=== PATIENT | male | born 2005 | race Caucasian/White ===

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

== ENCOUNTER 2023-09-14 10:17 | Outpatient (OUT) | payer OTHER, SELFPAY ==
[2023-09-14 11:01] LABS: Basophils Percent Auto 0.3 % (0.2-2.0); Eosinophils Absolute Auto 0.2 10^3/uL (0.0-0.7); Eosinophils Percent Auto 2.9 % (0.9-7.0); Hematocrit 42.7 % (42.0-54.0); Hemoglobin 14.7 g/dL (14.0-18.0); Immature Granulocytes Abs Auto 0.02 10^3/uL (0.00-0.03); Immature Granulocytes Pct Auto 0.3 % (0.0-0.5); Lymphocytes Absolute Auto 1.4 10^3/uL (1.2-3.8); Lymphocytes Percent Auto 20.8 % (20.5-60.0); Mean Corpuscular HGB Conc 34.4 g/dL (29.9-35.2); Mean Corpuscular Hemoglobin 30.5 pg (25.9-34.0); Mean Corpuscular Volume 88.6 fL (80.0-94.0); Mean Platelet Volume 10.2 fL (9.5-13.5); Monocytes Absolute Auto 0.8 10^3/uL (0.3-0.8); Monocytes Percent Auto 12.1 % (1.7-12.0); Neutrophils Absolute Auto 4.2 10^3/uL (1.4-6.5); Neutrophils Percent Auto 63.6 % (43.0-75.0); Platelet Count 215 10^3/uL (150-450); Red Blood Count 4.82 10^6/uL (4.70-6.10); Red Cell Distribution Width 12.4 % (11.0-15.0); White Blood Count 6.6 10^3/uL (4.0-11.0)
[2023-09-14 11:46] LABS: Estimated Average Glucose 100 mg/dL; Glycohemoglobin A1C 5.1 % (4.5-6.2)
[2023-09-14 15:26] LABS: Carbon Dioxide 28.9 mmol/L (21.0-32.0); Chloride 104 mmol/L (98-107); Potassium 3.9 mmol/L (3.5-5.1); Sodium 140 mmol/L (136-145)
[2023-09-14 15:27] LABS: BUN Creatinine Ratio 7.5; Calcium 8.5 mg/dL (8.5-10.1); Estimated GFR (African America >60 (>=60); Estimated GFR (Non-African Ame >60 (>=60); Glucose 99 mg/dL (74-106)
[2023-09-14 15:28] LABS: Alanine Aminotransferase 55 U/L (16-63); Alkaline Phosphatase 128 U/L (46-116); Aspartate Amino Transferase 19 U/L (15-37); Bilirubin Total 0.5 mg/dL (0.2-1.0)
[2023-09-14 15:29] LABS: Albumin Globulin Ratio 0.9; Albumin Level 3.3 g/dL (3.4-5.0); Chol HDL Ratio 4.2; Cholesterol 167 mg/dL (<=200); Globulin 3.7 g/dL; HDL Cholesterol 40 mg/dL (40-60); Triglycerides 63 mg/dL (<=150); VLDL CHOLESTEROL 12.6 mg/dL
[2023-09-14 15:30] LABS: Thyroid Stimulating Hormone 3.044 uIU/mL (0.358-3.740)
== END 2023-09-14 10:18 | disposition home or self-care (01) ==
LOC: LAB 10:20
PROVIDERS: PCP Nurse Practitioner; Visit Provider Nurse Practitioner
DX: Z00.00 Encounter for general adult medical examination without abnormal findings (principal)
CPT/HCPCS: 36415; 80053; 80061; 82043; 82570; 82607; 83036; 84443; 85025

== ENCOUNTER 2023-10-18 12:57 | Outpatient (OUT) | payer OTHER, SELFPAY ==
--- OUTSIDE RECORDS SUMMARY | 2023-10-18 13:02 | XMS_ITS | CCD ---
Author Organization [facility] Care Team Providers Care Price Analyst Name Role Phone House, Virgilio Admitting Unavailable House, Virgilio Attending Unavailable House, Virgilio Primary Care Unavailable AICHHOLZ, NURSE COORDINATOR AMOR Admitting Unavailable AICHHOLZ, NURSE COORDINATOR AMOR Primary Care Unavailable AICHHOLZ, NURSE COORDINATOR AMOR Consulting Unavailable AICHHOLZ, NURSE COORDINATOR AMOR Attending Unavailable AICHHOLZ, NURSE COORDINATOR AMOR Admitting Unavailable AICHHOLZ, NURSE COORDINATOR AMOR Primary Care Unavailable AICHHOLZ, NURSE COORDINATOR AMOR Consulting Unavailable AICHHOLZ, NURSE COORDINATOR AMOR Attending Unavailable AICHHOLZ, AMOR Attending Unavailable AICHHOLZ, AMOR Attending Unavailable Medications Current Medications Medication Drug Class(es) Dates Sig (Normalized) Sig (Original) metFORMIN hydrochloride 500 mg oral tablet (1 source) Biguanide Start: 09-11-2023 take 1000 mg by mouth twice daily at mealtime Metformin Active 1000 MG PO Twice daily with meals September 11, 2023 12:00am Problems Problem Classification Problem Date Documented Da te Episodic/Chronic Other nutritional; endocrine; and metabolic disorders (4 sources) Metabolic syndrome; Translations: [METABOLIC SYNDROME] Onset: 08-05-2022 Chronic Unclassified (1 source) 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 Esther Mederos INSULINon 04-30-2022 Insulin 50.3 uIU/mL Critically high 2.6-24.9 [facility] Comment on above: Performed By: #### I NSULIN #### [facility] [address] [address] [address] Esther Mederos CBC AUTO DIFFon 04-29-2022 BASO # 0.0 103/ul Normal 0.0-0.1 [facility] Comment on above: Performed By: #### C BC #### [facility] [address] [address] [address] Esther Mederos Basophils/100 WBC (Bld) 0.3 % Normal 0.2-2.0 [facility] Comment on above: Performed By: #### C BC #### [facility] [address] [place] [address] Dr. Esther Mederos EO # 0.2 103/ul Normal 0.0-0.7 [facility] Comment on above: Performed By: #### C BC #### [facility] [address] [place] [address] Dr. Esther Mederos Eosinophils/100 WBC (Bld) 3.1 % Normal 0.9-7.0 [facility] Comment on above: Performed By: #### C BC #### [facility] [address] [place] [address] Dr. Esther Mederos Erythrocyte distribution width (RBC) [Ratio] 12.7 % Normal 11.0-15.0 [facility] Comment on above: Performed By: #### C BC #### [facility] [address] [place] [address] Dr. Esther Mederos Hematocrit (Bld) [Volume fraction] 48.5 % Normal 42.0-54.0 [facility] Comment on above: Performed By: #### C BC #### [facility] [address] [place] [address] Dr. Esther Mederos Hemoglobin (Bld) [Mass/Vol] 15.6 g/dL Normal 14.0-18.0 [facility] Comment on above: Performed By: #### C BC #### [facility] [address] [place] [address] Dr. Esther Mederos IG # 0.02 10e3/ul Normal 0.00-0.03 [facility] Comment on above: Performed By: #### C BC #### [facility] [address] [place] [address] Dr. Esther Mederos IG % 0.3 % Normal 0.0-0.5 [facility] Comment on above: Performed By: #### C BC #### [facility] [address] [place] [address] Dr. Esther Mederos LYMPH # 2.0 103/ul Normal 1.2-3.8 [facility] Comment on above: Performed By: #### C BC #### [facility] [address] [place] [address] Dr. Esther Mederos Lymphocytes/100 WBC (Bld) 34.9 % Normal 20.5-60.0 [facility] Comment on above: Performed By: #### C BC #### [facility] [address] [place] [address] Dr. Esther Mederos MANUAL DIFF REQ NO Normal [facility] Comment on above: Performed By: #### C BC #### [facility] [address] [place] [address] Dr. Esther Mederos MCH (RBC) [Entitic mass] 30.1 pg Normal 25.9-34.0 [facility] Comment on above: Performed By: #### C BC #### [facility] [address] [place] [address] Dr. Esther Mederos MCHC (RBC) [Mass/Vol] 32.2 g/dL Normal 29.9-35.2 [facility] Comment on above: Performed By: #### C BC #### [facility] [address] [place] [address] Dr. Esther Mederos MCV (RBC) [Entitic vol] 93.6 fL Normal 80.0-94.0 [facility] Comment on above: Performed By: #### C BC #### [facility] [address] [place] [address] Dr. Esther Mederos MONO # 0.5 103/ul Normal 0.3-0.8 [facility] Comment on above: Performed By: #### C BC #### [facility] [address] [place] [address] Dr. Esther Mederos Monocytes/100 WBC (Bld) 8.6 % Normal 1.7-12.0 [facility] Comment on above: Performed By: #### C BC #### [facility] [address] [place] [address] Dr. Esther Mederos NEUT # 3.1 103/ul Normal 1.4-6.5 [facility] Comment on above: Performed By: #### C BC #### [facility] [address] [place] [address] Dr. Esther Mederos Neutrophils/100 WBC (Bld) 52.8 % Normal 43.0-75.0 [facility] Comment on above: Performed By: #### C BC #### [facility] [address] [place] [address] Dr. Esther Mederos Platelet mean volume (Bld) [Entitic vol] 10.6 fL Normal 9.5-13.5 [facility] Comment on above: Performed By: #### C BC #### [facility] [address] [place] [address] Dr. Esther Mederos PLT 243 103/ul Normal 150-450 [facility] Comment on above: Performed By: #### C BC #### [facility] [address] [place] [address] Dr. Esther Mederos RBC 5.18 106/ul Normal 4.70-6.10 [facility] Comment on above: Performed By: #### C BC #### [facility] [address] [place] [address] Dr. Esther Mederos WBC 5.8 103/ul Normal 4.0-11.0 [facility] Comment on above: Performed By: #### C BC #### [facility] [address] [place] [address] Dr. Esther Mederos FREE T4on 04-29-2022 Free T4 [Mass/Vol] 0.91 ng/dL Normal 0.78-1.34 [facility] Comment on above: Performed By: #### F T4 #### [facility] [address] [address] [address] Esther Mederos GLYCOHEMOGLOBIN A1Con 2022 ADA RECOMMENDATION SEE BELOW Normal [facility] Comment on above: Result Comment: ADA RECOMMENDED LIMIT 4.0 - 6.0 ADA THERAPEUTIC TARGET < 7.0 ACTION SUGGESTED > 7.0 Performed By: #### A 1C #### [facility] [address] [address] [address] Esther Mederos Glucose [Mass/Vol] 97 mg/dL Normal [facility] Comment on above: Performed By: #### A 1C #### [facility] [address] [address] [address] Esther Mederos HbA1c (Bld) [Mass fraction] 5.0 % Normal 4.5-6.2 [facility] Comment on above: Performed By: #### A 1C #### [facility] [address] [place] [address] Dr. Esther Mederos LIPID PROFILEon 04-29-2022 CHOL-HDL RATIO NORM SEE BELOW Normal [facility] Comment on above: Result Comment: 3.3 - 4.4 LOW RISK 4.4 - 7.1 AVERAGE RISK 7.1 - 11.0 MODERATE RISK >11.0 HIGH RISK Performed By: #### L IPID, CMP, TSH #### [facility] [address] [place] [address] Dr. Esther Mederos Cholesterol [Mass/Vol] 134 mg/dL Normal 109-189 [facility] Comment on above: Performed By: #### L IPID, CMP, TSH #### [facility] [address] [address] [address] Esther Mederos Cholesterol in HDL [Mass/Vol] 32 mg/dL Normal 23-55 [facility] Comment on above: Performed By: #### L IPID, CMP, TSH #### [facility] [address] [address] [address] Esther Mederos Cholesterol in LDL [Mass/Vol] 85.2 mg/dL Normal 48.0-117.0 [facility] Comment on above: Performed By: #### L IPID, CMP, TSH #### [facility] [address] [address] [address] Esther Mederos Cholesterol.total/Cho lesterol in HDL [Mass ratio] 4.2 {ratio} Normal [facility] Comment on above: Performed By: #### L IPID, CMP, TSH #### [facility] [address] [address] [address] Esther Mederos HDL NORMAL > or = 60 mg/dl - LOW CARDIOVASCULAR RISK <40 mg/dl - HIGH CARDIOVASCULAR RISK Normal [facility] Comment on above: Performed By: #### L IPID, CMP, TSH #### [facility] [address] [address] [address] Esther Mederos LDL CALC NORMAL SEE BELOW Normal [facility] Comment on above: Result Comment: <100 mg/dl OPTIMAL 100 - 129 mg/dl NEAR OR ABOVE OPTIMAL 130 - 159 mg/dl BORDERLINE HIGH 160 - 189 mg/dl HIGH >190 mg/dl VERY HIGH Performed By: #### L IPID, CMP, TSH #### [facility] [address] [address] [address] Esther Mederos Triglyceride [Mass/Vol] 84 mg/dL Normal 50-183 [facility] Comment on above: Performed By: #### L IPID, CMP, TSH #### [facility] [address] [address] [address] Esther Mederos VLDL CALC 16.8 mg/dL Normal [facility] Comment on above: Performed By: #### L IPID, CMP, TSH #### [facility] [address] [address] [address] Esther Mederos PROF 14(COMP METB)on 023 Albumin [Mass/Vol] 3.8 g/dL Normal 3.4-5.0 [facility] Comment on above: Performed By: #### L IPID, CMP, TSH #### [facility] [address] [address] [address] Esther Mederos Albumin/Globulin [Mass ratio] 1.1 {ratio} Normal [facility] Comment on above: Performed By: #### L IPID, CMP, TSH #### [facility] [address] [address] [address] Esther Mederos ALP [Catalytic activity/Vol] 137 U/L Critically high 46-116 [facility] Comment on above: Performed By: #### L IPID, CMP, TSH #### [facility] [address] [address] [address] Esther Mederos ALT [Catalytic activity/Vol] 53 U/L Normal 16-63 [facility] Comment on above: Performed By: #### L IPID, CMP, TSH #### [facility] [address] [address] [address] Esther Mederos Anion gap [Moles/Vol] 11.9 mmol/L Normal [facility] Comment on above: Performed By: #### L IPID, CMP, TSH #### [facility] [address] [address] [address] Esther Mederos AST [Catalytic activity/Vol] 23 U/L Normal 15-37 [facility] Comment on above: Performed By: #### L IPID, CMP, TSH #### [facility] [address] [address] [address] Esther Mederos Bilirubin [Mass/Vol] 0.4 mg/dL Normal 0.2-1.0 [facility] Comment on above: Performed By: #### L IPID, CMP, TSH #### [facility] [address] [address] [address] Esther Mederos Calcium [Mass/Vol] 9.2 mg/dL Normal 8.5-10.1 [facility] Comment on above: Performed By: #### L IPID, CMP, TSH #### [facility] [address] [address] [address] Esther Mederos Chloride [Moles/Vol] 105 mmol/L Normal 98-107 [facility] Comment on above: Performed By: #### L IPID, CMP, TSH #### [facility] [address] [address] [address] Esther Mederos CO2 [Moles/Vol] 29.1 mmol/L Normal 21.0-32.0 [facility] Comment on above: Performed By: #### L IPID, CMP, TSH #### [facility] [address] [address] [address] Esther Mederos Creatinine [Mass/Vol] 0.88 mg/dL Normal 0.70-1.30 [facility] Comment on above: Performed By: #### L IPID, CMP, TSH #### [facility] [address] [address] [address] Esther Mederos EGFR-AF JAPANESE >60 Normal >=60 [facility] Comment on above: Performed By: #### L IPID, CMP, TSH #### [facility] [address] [place] [address] Dr. Esther Mederos EGFR-NON AF JAPANESE >60 Normal >=60 [facility] Comment on above: Performed By: #### L IPID, CMP, TSH #### [facility] [address] [place] [address] Dr. Esther Mederos Globulin (S) [Mass/Vol] 3.4 g/dL Normal [facility] Comment on above: Performed By: #### L IPID, CMP, TSH #### [facility] [address] [place] [address] Dr. Esther Mederos Glucose [Mass/Vol] 99 mg/dL Normal 74-106 [facility] Comment on above: Performed By: #### L IPID, CMP, TSH #### [facility] [address] [place] [address] Dr. Esther Mederos Potassium [Moles/Vol] 4.0 mmol/L Normal 3.5-5.1 [facility] Comment on above: Performed By: #### L IPID, CMP, TSH #### [facility] [address] [place] [address] Dr. Esther Mederso Protein [Mass/Vol] 7.2 g/dL Normal 6.4-8.2 [facility] Comment on above: Performed By: #### L IPID, CMP, TSH #### [facility] [address] [place] [address] Dr. Esther Mederos Sodium [Moles/Vol] 142 mmol/L Normal 136-145 [facility] Comment on above: Performed By: #### L ÁNGEL YODER, TSH #### [facility] [address] [place], [place] [address] Dr. Esther Mederos Urea nitrogen [Mass/Vol] 10.0 mg/dL Normal 6.4-19.3 [facility] Comment on above: Performed By: #### L IPÁNGEL JASSO, TSH #### [facility] [address] [address] [address] Esther Mederos Urea nitrogen/Creatinine [Mass ratio] 11.4 mg/mg Normal [facility] Comment on above: Performed By: #### L ÁNGEL YODER, TSH #### [facility] [address] [address] [address] Esther Mederos TSHon 04-29-2022 TSH 3.715 uIU/mL Normal 0.516-4.130 [facility] Comment on above: Performed By: #### L ÁNGEL YODER, TSH #### [facility] [address] [place], [place] [address] Dr. Esther Mederos Vital Signs Date Time Vital Sign Value Performing Clinician Anton [email or web address] 09-11-2023 09:43-0400 Body height 175.26 cm [facility] 09-11-2023 09:43-0400 Body mass index (BMI) [Ratio] 39.9 kg/m2 [facility] 09-11-2023 09:43-0400 Body temperature 98.3 [degF] [facility] 09-11-2023 09:43-0400 Body weight 122.72 kg [facility] 09-11-2023 09:43-0400 Diastolic blood pressure 86 mm[Hg] [facility] 09-11-2023 09:43-0400 Heart rate 83 /min [facility] 09-11-2023 09:43-0400 Respiratory rate 16 /min [facility] 09-11-2023 09:43-0400 SaO2% (BldA) [Mass fraction] 98 % [facility] 09-11-2023 09:43-9700 Systolic blood pressure 131 mm[Hg] [facility] Encounters Encounter Date Encounter Type Care Provider Facility Start: 09-15-2023 End: 09-15-2023 ambulatory AMOR AICRosauraHOLZ Not Available Start: 09-11-2023 End: 09-11-2023 ambulatory [facility] Work Phone: Start: 09-11-2023 End: 09-11-2023 Patient encounter procedure [facility] Work Phone: Start: 08-25-2023 End: 08-25-2023 ambulatory AMOR AICHHOLZ Not Available Start: 08-05-2022 End: 08-06-2022 ambulatory NURSE COORDINATOR AMOR AICHHOLZ Facility:[facility] Start: 04-29-2022 End: 04-30-2022 ambulatory NURSE COORDINATOR AMOR AICHHOLZ Facility:[facility] Start: 02-14-2018 End: 02-15-2018 Patient encounter procedure [facility] Facility:[facility] Payers Date Payer Category Payer Unknown [id number] 2003 Unknown [id number] 2.16.84 [id number] 2003 Unknown [id number] 2.16.84 [id number] 2003 Unknown [id number] 2.16.84 [id number] 2003 Unknown [id number] 2.16.84 [id number] 1959 Unknown [id number] Self-pay Self Pay [id number] Social History Date Type Detail Facility Start: 09-11-2023 Tobacco smoking stat us NHIS Never smoked tobacco (finding) [facility] Start: 2005 Sex Assigned At Male [facility] Evaluation note Note Date & Type Note Facility Evaluation note No assessment information availa ble [facility] Work Phone: Summary Purpose Family History No Family History Records FoundNo Family History Records FoundNo Family History Records Found Advance Directives No Advanced Directives Records Found Advance Directive Response Recorded Date/ Time Advance Directives No January 11, 2018 9:41am Chief Complaint and Reason for Visit Chief Complaint cotton stuck in righ t ear Additional Source Comments (unrecognized sect ion and content) No Status Records FoundNo Status Records FoundNo Status Records Found INFORMATION SOURCE (unrecogn ized section and content) DATE CREATED AUTHOR 06/16/2018 [facility] DATE CREATED AUTHOR AUTHOR'S ORGANIZ ATION 08/11/2022 [facility] DATE CREATED AUTHOR AUTHOR'S ORGANIZ ATION 09/17/2023 [facility] [employer] Care Teams (unrecognized sec tion and content) Team Status: Active Member Role Status Dates NON STAFF Primary Care Provider Active Team Status: Inactive Member Role Status Dates Lili Villa APRN Attending Provider Active Start: September 11, 2023 End: September 11, 2023 NON STAFF Primary Care Provider Active Start: September 11, 2023 End: September 11, 2023 Goals (unrecognized section and content) Goals may be documented in a n alternate section FOR RECORDS PERTAINING TO PATIENTS WHO ARE OR HAVE BEEN ENROLLED IN A CHEMICAL DEPENDENCY/SUBSTANCEABUSE PROGRAM, SOME INFORMATION MAY BE OMITTED. This clinical summary was aggregated from multiple sources. Caution should be exercised in using it in the provision of clinical care. This summary normalizes information from multiple sources, and as a consequence, information in this document may materially change the coding, format and clinical context of patient data. In addition, data may be omitted in some cases. CLINICAL DECISIONS SHOULD BE BASED ON THE PRIMARY CLINICAL RECORDS. [employer] provides no warranty or guarantee of the accuracy or completeness of information in this document.
[2023-10-18 13:50] LABS: Alanine Aminotransferase 41 U/L (16-63); Albumin Globulin Ratio 1.1; Albumin Level 3.7 g/dL (3.4-5.0); Alkaline Phosphatase 125 U/L (46-116); Aspartate Amino Transferase 18 U/L (15-37); Bilirubin Direct 0.1 mg/dL (0.0-0.2); Bilirubin Total 0.5 mg/dL (0.2-1.0); Gamma Glutamyl Transpeptidase 56 U/L (15-85); Globulin 3.4 g/dL; Total Protein 7.1 g/dL (6.4-8.2)
== END 2023-10-18 12:58 | disposition home or self-care (01) ==
LOC: LAB 12:57
PROVIDERS: PCP Nurse Practitioner; Visit Provider Nurse Practitioner
DX: Z00.00 Encounter for general adult medical examination without abnormal findings (principal); R74.8 Abnormal levels of other serum enzymes
CPT/HCPCS: 36415; 80076; 82977

== ENCOUNTER 2024-05-07 11:40 | Outpatient (OUT) | payer OTHER, SELFPAY ==
--- OUTSIDE RECORDS SUMMARY | 2024-05-07 11:59 | XMS_ITS | CCD ---
Author Organization [facility] Care Team Providers Care Licensed Practical Vocational Nurse Name Role Phone Gil, Virgilio Admitting Unavailable House, Virgilio Attending Unavailable House, Virgilio Primary Care Unavailable AICHHOLZ, REAL ESTATE SPECIALIST RONIT Admitting Unavailable AICHHOLZ, REAL ESTATE SPECIALIST RONIT Primary Care Unavailable AICHHOLZ, REAL ESTATE SPECIALIST RONIT Consulting Unavailable AICHHOLZ, REAL ESTATE SPECIALIST RONIT Attending Unavailable AICHHOLZ, REAL ESTATE SPECIALIST RONIT Admitting Unavailable AICHHOLZ, REAL ESTATE SPECIALIST RONIT Primary Care Unavailable AICHHOLZ, REAL ESTATE SPECIALIST RONIT Consulting Unavailable AICHHOLZ, REAL ESTATE SPECIALIST RONIT Attending Unavailable Aichholz PODIATRY TEACHER, Ronit Unavailable Mejia Ignacio MD Primary Care Provider AICHHOLZ, RONIT Attending Unavailable AICHHOLZ, RONIT Attending Unavailable AICHHOLZ, RONIT Attending Unavailable Medications Current Medications Medication Drug Class(es) Dates Sig (Normalized) Sig (Original) metFORMIN hydrochloride 500 mg oral tablet (8 sources) Biguanide Start: 12-11-2023 End: 06-18-2024 take 2 tablets by mouth in the morning metFORMIN (Glucophage) 500 MG tablet Indications: Insulin resistance Take 2 tablets (1,000 mg) by mouth in the morning and 2 tablets (1,000 mg) in the evening. Take with meals. 360 tablet 03/20/2024 06/18/2024 Active Start: 09-11-2023 take 1000 mg by mout h twice daily at mealtime Metformin Active 1000 MG PO Twice daily with meals September 11, 2023 12:00am Problems Active Problems Problem Classification Problem Date Documented Da te Episodic/Chronic Other liver diseases (8 sources) Alkaline phosphatase raised; Translations: [Abnormal levels of other serum enzymes] Onset: 09-14-2023 09-14-2023 Episodic Other nutritional; endocrine; and metabolic disorders (4 sources) Metabolic syndrome; Translations: [METABOLIC SYNDROME] Onset: 08-05-2022 Chronic Other nutritional; endocrine; and metabolic disorders (10 sources) Insulin resistance; Translations: [Insulin resistance] Onset: 08-25-2023 12-10-2023 Chronic Other nutritional; endocrine; and metabolic disorders (8 sources) Body mass index 30+ - obesity; Translations: [Obesity, unspecified] Onset: 08-25-2023 08-25-2023 Chronic Unclassified (1 source) 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; Translations: [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] Onset: 02-14-2018 Past or Other Problems Problem Classification Problem Date Documented Da te Episodic/Chronic Diseases of mouth; excluding dental (6 sources) Aphthous ulceration of skin and/or mucous membrane; Translations: [Recurrent oral aphthae] Onset: 08-25-2023 Resolved: 05-03-2024 08-25-2023 Episodic Otitis media and related conditions (6 sources) Acute suppurative otitis media without spontaneous rupture of ear drum; Translations: [Acute suppurative otitis media without spontaneous rupture of ear drum, right ear] Onset: 09-15-2023 Resolved: 05-03-2024 09-15-2023 Episodic Results Test Name Value Interpretation Reference Range Facil ity INSULINon 08-07-2022 Insulin 73.7 uIU/mL Critically high 2.6-24.9 [facility] Comment on above: Performed By: #### I NSULIN #### [facility] [address] [address] [address] Esther Mederos INSULINon 04-30-2022 Insulin 50.3 uIU/mL Critically high 2.6-24.[address] [facility] Comment on above: Performed By: #### I NSULIN #### [facility] [address] [address] [address] Esther Mederos CBC AUTO DIFFon 04-29-2022 BASO # 0.0 103/ul Normal 0.0-0.1 [facility] Comment on above: Performed By: #### C BC #### [facility] [address] [address] [address] Esther Mederos Basophils/100 WBC (Bld) 0.3 % Normal 0.2-2.0 [facility] Comment on above: Performed By: #### C BC #### [facility] [address] [place] [address] Dr. Esther Mederos EO # 0.2 103/ul Normal 0.0-0.7 [facility] Comment on above: Performed By: #### C BC #### [facility] [address] [place] [address] Dr. Esther Mederos Eosinophils/100 WBC (Bld) 3.1 % Normal 0.9-7.0 [facility] Comment on above: Performed By: #### C BC #### [facility] [address] [place] [address] Dr. Esther Mederos Erythrocyte distribution width (RBC) [Ratio] 12.7 % Normal 11.0-15.0 [facility] Comment on above: Performed By: #### C BC #### [facility] [address] [place] [address] Dr. Esther Mederos Hematocrit (Bld) [Volume fraction] 48.5 % Normal 42.0-54.0 [facility] Comment on above: Performed By: #### C BC #### [facility] [address] [place] [address] Dr. Esther Mederos Hemoglobin (Bld) [Mass/Vol] 15.6 g/dL Normal 14.0-18.0 [facility] Comment on above: Performed By: #### C BC #### [facility] [address] [place] [address] Dr. Esther Mederos IG # 0.02 10e3/ul Normal 0.00-0.03 [facility] Comment on above: Performed By: #### C BC #### [facility] [address] [place] [address] Dr. Esther Mederos IG % 0.3 % Normal 0.0-0.5 [facility] Comment on above: Performed By: #### C BC #### [facility] [address] [place] [address] Dr. Esther Mederos LYMPH # 2.0 103/ul Normal 1.2-3.8 [facility] Comment on above: Performed By: #### C BC #### [facility] [address] [place] [address] Dr. Esther Mederos Lymphocytes/100 WBC (Bld) 34.9 % Normal 20.5-60.0 [facility] Comment on above: Performed By: #### C BC #### [facility] [address] [place] [address] Dr. Esther Mederos MANUAL DIFF REQ NO Normal [facility] Comment on above: Performed By: #### C BC #### [facility] [address] [place] [address] Dr. Esther Mederos MCH (RBC) [Entitic mass] 30.1 pg Normal 25.9-34.0 [facility] Comment on above: Performed By: #### C BC #### [facility] [address] [place] [address] Dr. Esther Mederos MCHC (RBC) [Mass/Vol] 32.2 g/dL Normal 29.9-35.2 [facility] Comment on above: Performed By: #### C BC #### [facility] [address] [place] [address] Dr. Esther Mederos MCV (RBC) [Entitic vol] 93.6 fL Normal 80.0-94.0 [facility] Comment on above: Performed By: #### C BC #### [facility] [address] [place] [address] Dr. Esther Mederos MONO # 0.5 103/ul Normal 0.3-0.8 [facility] Comment on above: Performed By: #### C BC #### [facility] [address] [place] [address] Dr. Esther Mederos Monocytes/100 WBC (Bld) 8.6 % Normal 1.7-12.0 [facility] Comment on above: Performed By: #### C BC #### [facility] [address] [place] [address] Dr. Esther Mederos NEUT # 3.1 103/ul Normal 1.4-6.5 [facility] Comment on above: Performed By: #### C BC #### [facility] [address] [place] [address] Dr. Esther Mederos Neutrophils/100 WBC (Bld) 52.8 % Normal 43.0-75.0 [facility] Comment on above: Performed By: #### C BC #### [facility] [address] [place] [address] Dr. Esther Mederos Platelet mean volume (Bld) [Entitic vol] 10.6 fL Normal 9.5-13.5 [facility] Comment on above: Performed By: #### C BC #### [facility] [address] [place] [address] Dr. Esther Mederos PLT 243 103/ul Normal 150-450 [facility] Comment on above: Performed By: #### C BC #### [facility] [address] [place] [address] Dr. Esther Mederos RBC 5.18 106/ul Normal 4.70-6.10 [facility] Comment on above: Performed By: #### C BC #### [facility] [address] [place] [address] Dr. Esther Mederos WBC 5.8 103/ul Normal 4.0-11.0 [facility] Comment on above: Performed By: #### C BC #### [facility] [address] [place] [address] Dr. Esther Mederos FREE T4on 04-29-2022 Free T4 [Mass/Vol] 0.91 ng/dL Normal 0.78-1.34 [facility] Comment on above: Performed By: #### F T4 #### [facility] [address] [place] [address] Dr. Esther Mederos GLYCOHEMOGLOBIN A1Con 2022 ADA RECOMMENDATION SEE BELOW Normal [facility] Comment on above: Result Comment: ADA RECOMMENDED LIMIT 4.0 - 6.0 ADA THERAPEUTIC TARGET < 7.0 ACTION SUGGESTED > 7.0 Performed By: #### A 1C #### [facility] [address] [place] [address] Dr. Esther Mederos Glucose [Mass/Vol] 97 mg/dL Normal [facility] Comment on above: Performed By: #### A 1C #### [facility] [address] [address] [address] Esther Mederos HbA1c (Bld) [Mass fraction] 5.0 % Normal 4.5-6.2 [facility] Comment on above: Performed By: #### A 1C #### [facility] [address] [address] [address] Esther Mederos LIPID PROFILEon 04-29-2022 CHOL-HDL RATIO NORM SEE BELOW Normal [facility] Comment on above: Result Comment: 3.3 - 4.4 LOW RISK 4.4 - 7.1 AVERAGE RISK 7.1 - 11.0 MODERATE RISK >11.0 HIGH RISK Performed By: #### L IPID, CMP, TSH #### [facility] [address] [address] [address] Esther Mederos Cholesterol [Mass/Vol] 134 mg/dL Normal 109-189 [facility] Comment on above: Performed By: #### L IPID, CMP, TSH #### [facility] [address] [address] [address] Esther Mederos Cholesterol in HDL [Mass/Vol] 32 mg/dL Normal 23-55 [facility] Comment on above: Performed By: #### L IPID, CMP, TSH #### [facility] [address] [address] [address] Esther Mederos Cholesterol in LDL [Mass/Vol] 85.2 mg/dL Normal 48.0-117.0 [facility] Comment on above: Performed By: #### L IPID, CMP, TSH #### [facility] [address] [address] [address] Esther Mederos Cholesterol.total/Cho lesterol in HDL [Mass ratio] 4.2 {ratio} Normal [facility] Comment on above: Performed By: #### L IPID, CMP, TSH #### [facility] [address] [address] [address] Esther Mederos HDL NORMAL > or = 60 mg/dl - LOW CARDIOVASCULAR RISK <40 mg/dl - HIGH CARDIOVASCULAR RISK Normal [facility] Comment on above: Performed By: #### L IPID, CMP, TSH #### [facility] [address] [address] [address] Esther Mederos LDL CALC NORMAL SEE BELOW Normal [facility] Comment on above: Result Comment: <100 mg/dl OPTIMAL 100 - 129 mg/dl NEAR OR ABOVE OPTIMAL 130 - 159 mg/dl BORDERLINE HIGH 160 - 189 mg/dl HIGH >190 mg/dl VERY HIGH Performed By: #### L IPID, CMP, TSH #### [facility] [address] [address] [address] Esther Mederos Triglyceride [Mass/Vol] 84 mg/dL Normal 50-183 [facility] Comment on above: Performed By: #### L IPID, CMP, TSH #### [facility] [address] [address] [address] Esther Mederos VLDL CALC 16.8 mg/dL Normal [facility] Comment on above: Performed By: #### L IPID, CMP, TSH #### [facility] [address] [address] [address] Esther Mederos PROF 14(COMP METB)on 023 Albumin [Mass/Vol] 3.8 g/dL Normal 3.4-5.0 [facility] Comment on above: Performed By: #### L IPID, CMP, TSH #### [facility] [address] [address] [address] Esther Mederos Albumin/Globulin [Mass ratio] 1.1 {ratio} Normal [facility] Comment on above: Performed By: #### L IPID, CMP, TSH #### [facility] [address] [address] [address] Etsher Mederos ALP [Catalytic activity/Vol] 137 U/L Critically high 46-116 [facility] Comment on above: Performed By: #### L IPID, CMP, TSH #### [facility] [address] [address] [address] Esther Mederos ALT [Catalytic activity/Vol] 53 U/L Normal 16-63 [facility] Comment on above: Performed By: #### L IPID, CMP, TSH #### [facility] [address] [address] [address] Esther Mederos Anion gap [Moles/Vol] 11.9 mmol/L Normal [facility] Comment on above: Performed By: #### L IPID, CMP, TSH #### [facility] [address] [address] [address] Esther Mederos AST [Catalytic activity/Vol] 23 U/L Normal 15-37 [facility] Comment on above: Performed By: #### L IPID, CMP, TSH #### [facility] [address] [address] [address] Esther Mederos Bilirubin [Mass/Vol] 0.4 mg/dL Normal 0.2-1.0 [facility] Comment on above: Performed By: #### L IPID, CMP, TSH #### [facility] [address] [place] [address] Dr. Esther Mederos Calcium [Mass/Vol] 9.2 mg/dL Normal 8.5-10.1 [facility] Comment on above: Performed By: #### L IPID, CMP, TSH #### [facility] [address] [place] [address] Dr. Esther Mederos Chloride [Moles/Vol] 105 mmol/L Normal 98-107 [facility] Comment on above: Performed By: #### L IPID, CMP, TSH #### [facility] [address] [address] [address] Esther Mederos CO2 [Moles/Vol] 29.1 mmol/L Normal 21.0-32.0 [facility] Comment on above: Performed By: #### L IPID, CMP, TSH #### [facility] [address] [place] [address] Dr. Esther Mederos Creatinine [Mass/Vol] 0.88 mg/dL Normal 0.70-1.30 [facility] Comment on above: Performed By: #### L IPID, CMP, TSH #### [facility] [address] [place] [address] Dr. Esther Mederos EGFR-AF VIETNAMESE >60 Normal >=[address] [facility] Comment on above: Performed By: #### L IPID, CMP, TSH #### [facility] [address] [place] [address] Dr. Esther Mederos EGFR-NON AF VIETNAMESE >60 Normal >=60 [facility] Comment on above: Performed By: #### L IPID, CMP, TSH #### [facility] [address] [place] [address] Dr. Esther Mederos Globulin (S) [Mass/Vol] 3.4 g/dL Normal [facility] Comment on above: Performed By: #### L IPID, CMP, TSH #### [facility] [address] [place] [address] Dr. Esther Mederos Glucose [Mass/Vol] 99 mg/dL Normal 74-106 [facility] Comment on above: Performed By: #### L IPID, CMP, TSH #### [facility] [address] [place] [address] Dr. Esther Mederos Potassium [Moles/Vol] 4.0 mmol/L Normal 3.5-5.1 [facility] Comment on above: Performed By: #### L IPID, CMP, TSH #### [facility] [address] [place] [address] Dr. Esther Mederos Protein [Mass/Vol] 7.2 g/dL Normal 6.4-8.2 [facility] Comment on above: Performed By: #### L IPID, CMP, TSH #### [facility] [address] [place] [address] Dr. Esther Mederos Sodium [Moles/Vol] 142 mmol/L Normal 136-145 [facility] Comment on above: Performed By: #### L IPID, CMP, TSH #### [facility] [address] [place] [address] Dr. Esther Mederos Urea nitrogen [Mass/Vol] 10.0 mg/dL Normal 6.4-19.3 [facility] Comment on above: Performed By: #### L IPID, CMP, TSH #### [facility] [address] [address] [address] Esther Mederos Urea nitrogen/Creatinine [Mass ratio] 11.4 mg/mg Normal [facility] Comment on above: Performed By: #### L IPIDÁNGEL, TSH #### [facility] [address] [address] [address] Esther Mederos TSHon 04-29-2022 TSH 3.715 uIU/mL Normal 0.516-4.130 [facility] Comment on above: Performed By: #### L IPID, CMP, TSH #### [facility] [address] [address] [address] Esther Mederos Vital Signs Date Time Vital Sign Value Performing Clinician Facility 05-03-2024 13:20-0500 Body mass index (BMI) [Ratio] 39.31 kg/m2 Ronit Olvera PODIATRY TEACHER Work Phone: [facility] 05-03-2024 13:20-0500 Body temperature 97.81 [degF] Ronit Olvera PODIATRY TEACHER Work Phone: [facility] 05-03-2024 13:20-0500 Body weight 124.29 kg Ronit Olvera PODIATRY TEACHER Work Phone: [facility] 05-03-2024 13:20-0500 Diastolic blood pressure 84 mm[Hg] Ronit Olvera PODIATRY TEACHER Work Phone: [facility] 05-03-2024 13:20-0500 Heart rate 104 /min Ronitdivine Olvera PODIATRY TEACHER Work Phone: [facility] 05-03-2024 13:20-0500 Respiratory rate 19 /min Ronit Olvera PODIATRY TEACHER Work Phone: [facility] 05-03-2024 13:20-0500 SaO2% (BldA) [Mass fraction] 97 % Ronit Olvera PODIATRY TEACHER Work Phone: [facility] 05-03-2024 13:20-0500 Systolic blood pressure 128 mm[Hg] Ronit Olvera PODIATRY TEACHER Work Phone: [facility] 09-11-2023 09:43-0400 Body height 175.26 cm [facility] 09-11-2023 09:43-0400 Body mass index (BMI) [Ratio] 39.9 kg/m2 [facility] 09-11-2023 09:43-0400 Body temperature 98.3 [degF] [facility] 09-11-2023 09:43-0400 Body weight 122.72 kg [facility] 09-11-2023 09:43-0400 Diastolic blood pressure 86 mm[Hg] [facility] 09-11-2023 09:43-0400 Heart rate 83 /min [facility] 09-11-2023 09:43-0400 Respiratory rate 16 /min [facility] 09-11-2023 09:43-0400 SaO2% (BldA) [Mass fraction] 98 % [facility] 09-11-2023 09:43-0400 Systolic blood pressure 131 mm[Hg] [facility] Encounters Encounter Date Encounter Type Care Provider Facility Start: 05-03-2024 End: 05-03-2024 Bamboo flowsheet Ronit Olvera PODIATRY TEACHER Work Phone: [facility] Start: 05-03-2024 End: 05-03-2024 Bamboo flowsheet Ronit Olvera PODIATRY TEACHER Work Phone: [facility] Start: 05-03-2024 End: 05-03-2024 Office outpatient visit 15 minutes Ronit Olvera PODIATRY TEACHER Work Phone: [facility] Comment on above: Insulin resistance ( Primary Dx); Obesity (BMI 30-39.9); Elevated alkaline phosphatase level Start: 05-03-2024 End: 05-03-2024 ambulatory RONIT WADE Not Available Start: 03-20-2024 End: 03-22-2024 Telephone encounter Ronit Olvera PODIATRY TEACHER Work Phone: [facility] Start: 03-17-2024 End: 03-20-2024 Refill Ronit Wade PODIATRY TEACHER Work Phone: [facility] Comment on above: Insulin resistance Start: 12-10-2023 End: 12-11-2023 Refill Ronit Aichholz PODIATRY TEACHER Work Phone: [facility] Comment on above: Insulin resistance Start: 09-15-2023 End: 09-15-2023 ambulatory RONIT AICHHOLZ Not Available Start: 09-11-2023 End: 09-11-2023 ambulatory [facility] Work Phone: Start: 09-11-2023 End: 09-11-2023 Patient encounter procedure [facility] Phys[facility] Work Phone: Start: 08-25-2023 Patient encounter status Ronit Aichholz PODIATRY TEACHER Work Phone: [facility] Start: 08-25-2023 End: 08-25-2023 ambulatory RONIT AICHHOLZ Not Available Start: 08-05-2022 End: 08-06-2022 ambulatory REAL ESTATE SPECIALIST RONIT AICHHOLZ Facility:[facility] Start: 04-29-2022 End: 04-30-2022 ambulatory REAL ESTATE SPECIALIST RONIT AICHHOLZ Facility:[facility] Start: 02-14-2018 End: 02-15-2018 Patient encounter procedure Virg[place] Facility:[facility] Plan of Treatment Date Care Activity Detail Author Start: 11-01-2024 End: 11-01-2024 Patient encounter procedure 11/01/2024 3:00 PM EDT Office Visit [facility] [address] [place] [id number] Ronit Olvera PODIATRY TEACHER [address] [place] [id number] [facility] Start: 06-28-2024 Influenza vaccination Influenza Vacc ine (#1) [facility] Comment on above: Postponed from 11/26 (Patient Refused) Start: 05-03-2024 End: 05-03-2025 Comprehensive metabolic 2000 panel - Serum or Plasma Comprehensive metabolic panel Lab Routine Elevated alkaline phosphatase level Expected: 05/03/2024 (Approximate), Expires: 05/03/2025 [facility] Comment on above: Expected: 05/03/2024 (Approximate), Expires: 05/03/2025 Start: 05-03-2024 End: 05-03-2025 Insulin, random Insulin, random Lab Routine Insulin resistance Expected: 05/03/2024 (Approximate), Expires: 05/03/2025 [facility] Work Phone: Comment on above: Expected: 05/03/2024 (Approximate), Expires: 05/03/2025 Start: 05-03-2024 End: 05-03-2024 Patient encounter procedure 05/03/2024 1:20 PM EST Office Visit [facility] [address] [place] [address] Ronit Olvera, PODIATRY TEACHER [address] [place] [address] Insulin resistance (Primary Dx); Obesity (BMI 30-39.9); Elevated alkaline phosphatase level [facility] Comment on above: Insulin resistance ( Primary Dx); Obesity (BMI 30-39.9); Elevated alkaline phosphatase level Start: 11-27-2023 Influenza vaccination Influenza Vacc ine (#1) [facility] Immunizations Immunization Date Immunization Notes Care Provider Fa [facility] 02-19-2023 influenza, injectabl e, quadrivalent, preservative free Ronit Wade PODIATRY TEACHER Work Phone: [facility] 02-19-2023 influenza virus vacc ine, unspecified formulation Ronit Wade PODIATRY TEACHER Work Phone: [facility] 09-03-2021 meningococcal oligosaccharide (groups A, C, Y and W-135) diphtheria toxoid conjugate vaccine (MCV4O) Ronit Olvera PODIATRY TEACHER Work Phone: [facility] 02-09-2019 Influenza, injectabl e, Madin Margaret Canine Kidney, quadrivalent with preservative Ronit Wade PODIATRY TEACHER Work Phone: [facility] 01-10-2018 influenza, injectabl e, quadrivalent, preservative free Ronit Aichholz PODIATRY TEACHER Work Phone: [facility] 03-02-2017 Influenza, injectabl e, Madin Dennison Canine Kidney, preservative free, quadrivalent Ronit Aichholz PODIATRY TEACHER Work Phone: [facility] 07-01-2016 meningococcal oligosaccharide (groups A, C, Y and W-135) diphtheria toxoid conjugate vaccine (MCV4O) Ronit Aichholz PODIATRY TEACHER Work Phone: [facility] 07-01-2016 tetanus toxoid, redu loly diphtheria toxoid, and acellular pertussis vaccine, adsorbed Ronit Aichholz PODIATRY TEACHER Work Phone: [facility] 01-25-2016 influenza, seasonal, injectable, preservative free Ronit Aichholz PODIATRY TEACHER Work Phone: [facility] 12-28-2013 influenza virus vacc ine, live, attenuated, for intranasal use Ronit Aichholz PODIATRY TEACHER Work Phone: [facility] 01-19-2013 influenza, injectabl e, quadrivalent, preservative free Ronit Aichholz PODIATRY TEACHER Work Phone: [facility] [facility]2012 influenza, seasonal, injectable, preservative free Ronit Aichholz PODIATRY TEACHER Work Phone: [facility] 01-08-2011 influenza, seasonal, injectable, preservative free Ronit Aichholz PODIATRY TEACHER Work Phone: [facility] 01-30-2010 influenza, seasonal, injectable, preservative free Ronit Aichholz PODIATRY TEACHER Work Phone: [facility] 09-03-2009 hepatitis A vaccine, pediatric/adolescent dosage, 2 dose schedule Ronit Aichholz PODIATRY TEACHER Work Phone: [facility] 05-22-2009 hepatitis A vaccine, pediatric/adolescent dosage, 2 dose schedule Ronit Aichholz PODIATRY TEACHER Work Phone: [facility] 11-11-2008 hepatitis A vaccine, pediatric/adolescent dosage, 2 dose schedule Ronitdivine Olsonz PODIATRY TEACHER Work Phone: [facility] 01-01-2008 diphtheria, tetanus toxoids and acellular pertussis vaccine Ronit Miguel Angelholz PODIATRY TEACHER Work Phone: [facility] 01-01-2008 measles, mumps and r ubella virus vaccine Ronit Aicholz PODIATRY TEACHER Work Phone: [facility] 01-01-2008 poliovirus vaccine, inactivated [facility] P[facility]IAT[facility] TEACHER Work Phone: [facility] 01-01-2008 varicella virus vaccine Ronit Aicholz PODIATRY TEACHER Work Phone: [facility] 01-30-2007 influenza virus vacc ine, whole virus Ronit Eliecerholz PODIATRY TEACHER Work Phone: [facility] 02-09-2005 diphtheria, tetanus toxoids and acellular pertussis vaccine, 5 pertussis antigens [facility] PODIATRY TEACHER Work Phone: [facility] 02-09-2005 influenza virus vacc ine, whole virus [facility] P[facility]IATRY TEACHER Work Phone: [facility] 02-09-2005 pneumococcal conjuga te vaccine, 7 valent Ronit Eliecerholz PODIATRY TEACHER Work Phone: [facility] 09-04-2004 haemophilus influenz ae type b vaccine, PRP-T conjugate Ronit Eliecerholz PODIATRY TEACHER Work Phone: [facility] 09-04-2004 measles, mumps and r ubella virus vaccine Ronit Aicholz PODIATRY TEACHER Work Phone: [facility] 09-04-2004 varicella virus vaccine Ronit Aicholz PODIATRY TEACHER Work Phone: [facility] 04-24-2004 DTaP-hepatitis B and poliovirus vaccine Ronit Aicholz PODIATRY TEACHER Work Phone: [facility] 04-24-2004 haemophilus influenz ae type b vaccine, conjugate unspecified formulation Ronit Eliecerholz PODIATRY TEACHER Work Phone: [facility] 04-24-2004 pneumococcal conjuga te vaccine, 7 valent Ronit Aichholz PODIATRY TEACHER Work Phone: [facility] 01-30-2004 DTaP-hepatitis B and poliovirus vaccine Ronit Aichholz PODIATRY TEACHER Work Phone: [facility] 01-30-2004 haemophilus influenz ae type b vaccine, conjugate unspecified formulation Ronit Aichholz PODIATRY TEACHER Work Phone: [facility] 01-30-2004 pneumococcal conjuga te vaccine, 7 valent Ronit Aichholz PODIATRY TEACHER Work Phone: [facility] 2003 DTaP-hepatitis B and poliovirus vaccine Ronit Aichholz PODIATRY TEACHER Work Phone: [facility] 2003 haemophilus influenz ae type b vaccine, conjugate unspecified formulation Ronit Aichholz PODIATRY TEACHER Work Phone: [facility] 2003 pneumococcal conjuga te vaccine, 7 valent Ronit Aichholz PODIATRY TEACHER Work Phone: [facility] 2003 hepatitis B vaccine, pediatric or pediatric/adolescent dosage Ronit Aichholz PODIATRY TEACHER Work Phone: [facility] Payers Date Payer Category Payer Private Health Insurance [facility] [id number] 2022 Unknown [employer] [id number] 2022-Present [phone] [address] [address] [place] [address] [id number] 2022 Unknown [id number] 2003 Unknown [id number] 2003 Unknown [id number] 2003 Unknown [id number] 2003 Unknown [id number] 2003 Unknown [id number] 1959 Unknown [id number] Self-pay Self Pay [id number] Social History Date Type Detail Facility Start: 03-16-2023 End: 09-11-2023 Tobacco smoking status HIIS Never smoked tobacco (finding) [facility] Start: 2003 Sex Assigned At Male F [facility] Start: 09-15-2023 End: 05-03-2024 Alcoholic beverage intake Lifetime non-drinker (finding) [facility] Start: 03-15-2023 End: 08-25-2023 [facility] Start: 03-15-2023 End: 08-25-2023 Humiliation, Afraid, Rape, and Kick questionnaire [HARK] [facility] Within the last year , have you been afraid of your partner or ex-partner? Patient declined [facility] Within the last year , have you been humiliated or emotionally abused in other ways by your partner or ex-partner? No [facility] How often to you hav e a drink containing alcohol? Never [facility] (I/We) worried wheth er (my/our) food would run out before (I/we) got money to buy more. Never true [facility] Start: 08-25-2023 Alcohol Comment no caffine [facility] Start: 2003 Sex assigned at Not on file [facility] History of Present illness Narrative 05-03-2024 Ronit Wade, PODIATRY TEACHER - 05/03/2024 1:20 PM Vinny Olvera, PODIATRY TEACHER - 05/03/2024 7:11 AM ESTRonit Olvera, PODIATRY TEACHER - 05/03/2024 7:11 AM ESTRonit Olvera, PODIATRY TEACHER - 05/03/2024 7:11 AM EST Note Date & Type Note Facility 05-03-2024 History of Presen t illness Narrative Nicholas Moreno is a 18 y.o. male presents with chief complaint of No chief complaint on file. HPI: Here for recheck of elevated insulin levels, he is taking metformin 1000mg BID No freq thirst/urination Does not exercise regularly No other c/o SUBJECTIVE: MEDICATIONS: Current Outpatient Medications Medication Instructions metFORMIN (GLUCOPHAGE) 1,000 mg, Oral, 2 times daily with meals ALLERGIES: No Known Allergies REVIEW OF SYMPTOMS: Review of Systems Constitutional: Negative for activity change, appetite change and unexpected weight change. HENT: Negative for ear pain, nosebleeds, sneezing, trouble swallowing and voice change. Eyes: Negative for pain, discharge and visual disturbance. Respiratory: Negative for apnea, chest tightness and wheezing. Cardiovascular: Negative for leg swelling. Gastrointestinal: Negative for abdominal distention, blood in stool, constipation and diarrhea. Genitourinary: Negative for decreased urine volume, difficulty urinating, dysuria and hematuria. Skin: Negative for color change. Neurological: Negative for dizziness, tremors and seizures. Psychiatric/Behavioral: Negative for agitation, decreased concentration, hallucinations, self-injury and suicidal ideas. The patient is not nervous/anxious. Hematological: Negative for adenopathy. Does not bruise/bleed easily. Endocrine: Negative for cold intolerance, heat intolerance, polydipsia and polyuria. Allergic/Immunologic: Negative for environmental allergies and food allergies. PAST MEDICAL HISTORY Past Medical History: Diagnosis Date Diabetes (CMS/HCC) Insulin resistance Left leg pain Obesity (BMI 30-39.9) History reviewed. No pertinent surgical history. family history includes Diabetes in his paternal grandfather and paternal grandmother. OBJECTIVE: Visit Vitals BP 128/84 (BP Location: Left arm, Patient Position: Sitting, BP Cuff Size: Large adult) Pulse 104 Temp 97.8 F (Temporal) Resp 19 Wt 274 lb SpO2 97% BMI 39.31 kg/m Smoking Status Never BSA 2.47 m Physical Exam Vitals and nursing note reviewed. Constitutional: Appearance: Normal appearance. HENT: Head: Normocephalic. Right Ear: External ear normal. Left Ear: External ear normal. Nose: Nose normal. Mouth/Throat: Mouth: Mucous membranes are moist. Pharynx: Oropharynx is clear. Eyes: Extraocular Movements: Extraocular movements intact. Conjunctiva/sclera: Conjunctivae normal. Cardiovascular: Rate and Rhythm: Normal rate and regular rhythm. Pulses: Normal pulses. Heart sounds: Normal heart sounds. Pulmonary: Effort: Pulmonary effort is normal. Breath sounds: Normal breath sounds. Abdominal: General: Bowel sounds are normal. Palpations: Abdomen is soft. Tenderness: There is no abdominal tenderness. There is no guarding or rebound. Hernia: No hernia is present. Musculoskeletal: Cervical back: Neck supple. Right lower leg: No edema. Left lower leg: No edema. Lymphadenopathy: Cervical: No cervical adenopathy. Skin: General: Skin is warm and dry. Capillary Refill: Capillary refill takes 2 to 3 seconds. Neurological: General: No focal deficit present. Mental Status: He is alert. Psychiatric: Mood and Affect: Mood normal. Behavior: Behavior normal. Thought Content: Thought content normal. Judgment: Judgment normal. ASSESSMENT AND PLAN: No follow-ups on file. Problem List Items Addressed This Visit Insulin resistance - Primary Current med metformin BID Check labs Relevant Orders Insulin, random Obesity (BMI 30-39.9) Discussed with patient their BMI (actual, verses recommended). We have also discussed lifestyle modifications: attempts to perform physical activity as chronic conditions allow, also to monitor dietary intake: increasing protein/fruits/veggies and lowering carb intake (unless contraindicated). Limit sodas, juices, and sugary drinks. Exercise 3-4 times weekly at least 30 minutes Goals of weight loss: goal 260 at fu in 6 months Elevated alkaline phosphatase level Check labs No acute abd pain Relevant Orders Comprehensive metabolic panel Associated Problem(s): Elevated alkaline phosphatase level Check labs No acute abd pain Associated Problem(s): Obesity (BMI 30-39.9) Discussed with patient their BMI (actual, verses recommended). We have also discussed lifestyle modifications: attempts to perform physical activity as chronic conditions allow, also to monitor dietary intake: increasing protein/fruits/veggies and lowering carb intake (unless contraindicated). Limit sodas, juices, and sugary drinks. Exercise 3-4 times weekly at least 30 minutes Goals of weight loss: goal 260 at fu in 6 months Associated Problem(s): Insulin resistance Current med metformin BID Check labs documented in this encounter [facility] Instructions 05-03-2024 Patient Instructions Note Date & Type Note Facility 05-03-2024 Instructions Ronit Olvera NP - 05/03/2024 1:20 PM EST Check labs Exercise 3-4 times weekly for 30 minutes Goals for weight loss and dietary changes discussed documented in this encounter [facility] Telephone encounter Note 03-20-2024 Telephone Encounter - Ronit Olvera NP - 03/20/2024 11:18 AM EST Note Date & Type Note Facility 03-20-2024 Telephone encount er Note Please contact pt to let him know he needs to schedule an appt with me [place] [facility] Note 03-20-2024 Telephone Encounter - Ronit Olvera NP - 03/20/2024 11:18 AM EST Note Date & Type Note Facility 03-20-2024 Miscellaneous Notes Formattin g of this note might be different from the original. Please contact pt to let him know he needs to schedule an appt with me [place] documented in this encounter [facility] Evaluation note Note Date & Type Note Facility Evaluation note No assessment information availa [facility] Work Phone: Evaluation note Note Date & Type Note Facility Evaluation note Diagnosis Insulin resistance Other abnormal glucose documented in this encounter [facility] Evaluation note Note Date & Type Note Facility Evaluation note Diagnosis Wellness examination- Primary Insulin resistance Other abnormal glucose Aphthous ulcer Oral aphthae Obesity (BMI 30-39.9) Non-recurrent acute suppurative otitis media of right ear without spontaneous rupture of tympanic membrane- Primary Obesity (BMI 30-39.9) Elevated alkaline phosphatase level Insulin resistance Other abnormal glucose documented in this encounter [facility] Evaluation note Note Date & Type Note Facility Evaluation note Diagnosis Wellness examination- Primary Insulin resistance Other abnormal glucose Aphthous ulcer Oral aphthae Obesity (BMI 30-39.9) Non-recurrent acute suppurative otitis media of right ear without spontaneous rupture of tympanic membrane- Primary Obesity (BMI 30-39.9) Elevated alkaline phosphatase level Insulin resistance- Primary Other abnormal glucose Obesity (BMI 30-39.9) Elevated alkaline phosphatase level documented in this encounter [facility] Summary Purpose Family History No Family History [...] section and content) DATE CREATED AUTHOR 06/16/2018 [facility] DATE CREATED AUTHOR AUTHOR'S ORGANIZ ATION 08/11/2022 [facility] DATE CREATED AUTHOR AUTHOR'S ORGANIZ ATION 05/05/2024 [facility] [employer] Care Teams (unrecognized sec tion and content) Team Status: Active Member Role Status Dates NON STAFF Primary Care Provider Active Team Status: Inactive Member Role Status Dates Lili Villa , OPERATOR [employer] Attending Provider Active Start: September 11, 2023 End: September 11, 2023 NON STAFF Primary Care Provider Active Start: September 11, 2023 End: September 11, 2023 Licensed Practical Vocational Nurse Relationship Specialty Start Date End Date Mejia Ignacio MD [address] [place] [phone] PCP - General Family Medicine 03/28/22 Ronit Olvera NP [address] [place] [id number] Nurse Practitioner Family Medicine 03/28/22 Licensed Practical Vocational Nurse Relationship Specialty Start Date End Date Mejia Ignacio MD [address] [place] [phone] PCP - General Family Medicine 03/28/22 Ronit Olvera NP [address] [place] [phone] Nurse Practitioner Family Medicine 03/28/22 Licensed Practical Vocational Nurse Relationship Specialty Start Date End Date Mejia Ignacio MD [address] [place] [phone] PCP - General Family Medicine 03/28/22 Ronit Olvera NP [address] [place] [phone] Nurse Practitioner Family Medicine 03/28/22 Licensed Practical Vocational Nurse Relationship Specialty Start Date End Date Mejia Ignacio MD [address] [place] [phone] PCP - General Family Medicine 03/28/22 Ronit Olvera NP [address] [place] [address] Nurse Practitioner [facility] 03/28/22 Licensed Practical Vocational Nurse Relationship Specialty Start Date End Date Mejia Ignacio MD [address] [place] [address] PCP - General [facility] 03/28/22 Ronit Olvera NP [address] [place] [address] Nurse Practitioner [facility] 03/28/22 Goals (unrecognized section and content) Goals may be documented in a n alternate section Reason for Visit (unrecogniz ed section and content) Reason Comments Med Refill FOR RECORDS PERTAINING TO PATIENTS WHO ARE [...] BE BASED ON THE PRIMARY CLINICAL RECORDS. [employer] provides no warranty or guarantee of the accuracy or completeness of information in this document.
[2024-05-07 12:59] LABS: Alanine Aminotransferase 48 U/L (16-63); Albumin Globulin Ratio 1.1; Albumin Level 3.9 g/dL (3.4-5.0); Alkaline Phosphatase 128 U/L (46-116); Anion Gap 12.2; Aspartate Amino Transferase 15 U/L (15-37); BUN Creatinine Ratio 7.1; Bilirubin Total 0.7 mg/dL (0.2-1.0); Calcium 9.3 mg/dL (8.5-10.1); Carbon Dioxide 30.6 mmol/L (21.0-32.0); Chloride 103 mmol/L (98-107); Estimated GFR (African America >60 (>=60 mL/min/1.73m^2); Estimated GFR (Non-African Ame >60 (>=60 mL/min/1.73m^2); Globulin 3.6 g/dL; Glucose 94 mg/dL (74-106); Potassium 3.8 mmol/L (3.5-5.1); Sodium 142 mmol/L (136-145); Total Protein 7.5 g/dL (6.4-8.2)
[2024-05-10 17:07] LABS: Insulin 23.1 uIU/mL (2.6-24.9)
== END 2024-05-07 11:41 | disposition home or self-care (01) ==
LOC: LAB 11:41
PROVIDERS: PCP Nurse Practitioner; Visit Provider Nurse Practitioner
DX: E88.819 Insulin resistance, unspecified (principal); R74.8 Abnormal levels of other serum enzymes
CPT/HCPCS: 36415; 80053; 83525